=== PATIENT | male | born 1990 | race Two or more races ===

== ENCOUNTER 2016-08-13 22:26 | Emergency (ER) | payer OTHER ==
[~2016-08-13] VITALS: Ht 172.7 cm; Wt 90.7 kg
[2016-08-13 22:26] VITALS: BP 129/88
== END 2016-08-13 22:50 ==
LOC: ER 22:29
DX: S00.81XA Abrasion of other part of head, initial encounter (principal); F15.10 Other stimulant abuse, uncomplicated; X58.XXXA Exposure to other specified factors, initial encounter; Y93.89 Activity, other specified; Y92.89 Other specified places as the place of occurrence of the external cause; Y99.8 Other external cause status
CPT/HCPCS: 99283; A4606; Z7610